=== PATIENT | female | born 1995 | race African-American/Black ===

== ENCOUNTER 2016-09-15 07:14 | Emergency (ER) | payer OTHER ==
[~2016-09-15] VITALS: Ht 175.3 cm; Wt 90.0 kg
[~2016-09-15 07:14] MED LIST: ETON1IMP I-DERMAL
[2016-09-15 07:16] VITALS: BP 129/66; PULSE 120; RESP 16; TEMP 97.7; O2SAT 100
[2016-09-15 07:25] VITALS: PULSE 105; RESP 20; O2SAT 100
[2016-09-15] MEDS ORDERED: IBUP800T23 PO (07:47)
[2016-09-15] MEDS ORDERED: AMOX875T PO (07:47)
--- NOTE | 2016-09-15 07:47 | PD ---
HPI Chief Complaint: ENT Complaint Time Seen by Provider: 07:30 Travel History International Travel<30 days: No Contact w/Intl Traveler<30days: No Traveled to known affect area: No History of Present Illness HPI Patient is a 20-year-old female who presents emergency for evaluation of right tonsillar hypertrophy, sore throat. She states her symptoms started 2 days ago. She has been taking acetaminophen sporadically. She has not taken any in 2 days. She denies any fever, chills, nausea, vomiting, abdominal pain, chest pain or shortness of breath. She further denies any nasal congestion or postnasal drip. PFSH Past Medical History Asthma: Yes Developmental Delay: No Diminished Hearing: No Immunizations Current: Yes ?: Not : 2 Para: 0 : 1 Social History Alcohol Use: No Tobacco Use: No Substance Use: No Allergies-Medications (Allergen,Severity, Reaction): Coded Allergies: No Known Allergies (Verified , 09/15/16) Reported Meds & Prescriptions Reported Meds & Active Scripts Active Reported Nexplanon Implant (Etonogestrel Implant) 68 Mg Imp 68 Mg I-DERMAL ONCE Review of Systems Except as stated in HPI: all other systems reviewed are Neg General / Constitutional: No: Fever, Chills HENT: Positive: Sore Throat, No: Congestion, Neck Stiffness, Neck Pain Cardiovascular: No: Chest Pain or Discomfort Respiratory: No: Shortness of Breath Gastrointestinal: No: Abdominal Pain Musculoskeletal: No: Myalgias Physical Exam Narrative GENERAL: Well-nourished, well-developed patient. SKIN: Warm and dry. HEAD: Normocephalic. EYES: No scleral icterus. No injection or drainage. THROAT: Mild pharyngeal injection, exudates noted on the right tonsil, 1+ tonsillar hypertrophy on the right. Airway is patent. NECK: Supple, trachea midline. No JVD or lymphadenopathy. CARDIOVASCULAR: Regular rate and rhythm without murmurs, gallops, or rubs. RESPIRATORY: Breath sounds equal bilaterally. No accessory muscle use. GASTROINTESTINAL: Abdomen soft, non-tender, nondistended. MUSCULOSKELETAL: No cyanosis, or edema. BACK: Nontender without obvious deformity. No CVA tenderness. Data Data Last Documented VS Vital Signs Date Time Temp Pulse Resp B/P Pulse Ox O2 Delivery O2 Flow Rate FiO2 09/15/16 07:25 105 20 100 Room Air 09/15/16 07:16 97.7 129/66 [facility] Medical Decision Making Medical Screen Exam Complete: Yes Emergency Medical Condition: Yes Interpretation(s) Vital Signs Date Time Temp Pulse Resp B/P Pulse Ox O2 Delivery O2 Flow Rate FiO2 09/15/16 07:25 105 20 100 Room Air 09/15/16 07:16 97.7 120 16 129/66 100 Room Air Differential Diagnosis Viral syndrome versus pharyngitis versus allergic rhinitis versus other Narrative Course Patient is a 20-year-old female who presented to emergency for evaluation of right tonsillar hypertrophy that is ongoing for approximately 2 days. Patient is afebrile, she has not taken any acetaminophen or ibuprofen as 2 days. Right tonsil is enlarged with exudates noted. Patient's airways patent. She'll be provided with a prescription for antibiotics at this time, she is encouraged to continue saltwater gargles. She is encouraged follow-up with her primary doctor or return to emergency department for any new or worsening symptoms. Patient verbalizes understanding of these instructions. Patient is stable for discharge. Diagnosis Primary Impression: Tonsillitis with exudate Referrals: Primary Care Physician Patient Instructions: General Instructions, Tonsillitis (ED) Additional Instructions: Follow-up with her primary doctor Take medications as directed Salt water gargles as needed Return to emergency department for any new or worsening symptoms Med/Other Pt SpecificInfo: Prescription(s) given Scripts Ibuprofen 800 Mg Gba104 Mg PO Q6HR PRN (PAIN) #40 TAB Ref 0 Prov:Raven Connors 09/15/16 Amoxicillin 875 Mg [id number] Mg PO BID 10 Days Ref 0 Prov:Raven Connors 09/15/16 Disposition: 01 DISCHARGE HOME Condition: Stable Raven Connors Sep 15, 2016 07:47
== END 2016-09-15 07:56 | disposition home or self-care (01) ==
LOC: NEPB 07:14
DX: J03.90 Acute tonsillitis, unspecified (principal); J45.909 Unspecified asthma, uncomplicated
CPT/HCPCS: 99282

== ENCOUNTER 2016-09-16 16:56 | Emergency (ER) | payer OTHER ==
[~2016-09-16] VITALS: Ht 175.3 cm; Wt 90.0 kg
[~2016-09-16 16:56] MED LIST changes: +AMOX875T PO; +IBUP800T23 PO
[2016-09-16 16:57] VITALS: BP 125/70; PULSE 82; RESP 12; TEMP 98; O2SAT 100
[2016-09-17] MEDS ORDERED: IBUP800T23 PO (01:17)
[2016-09-17] MEDS ORDERED: AMOX875T PO (01:17)
== END 2016-09-16 19:30 | disposition left against medical advice (07) ==
LOC: NED 16:56
DX: J02.9 Acute pharyngitis, unspecified (principal)
CPT/HCPCS: 99281

== ENCOUNTER 2016-09-17 00:59 | Emergency (ER) | payer OTHER ==
[~2016-09-17] VITALS: Ht 175.3 cm; Wt 90.0 kg
[2016-09-17 01:03] VITALS: BP 137/64; PULSE 88; RESP 18; TEMP 97.8; O2SAT 100
[2016-09-17] MEDS ORDERED: AMOX875T PO (01:17)
[2016-09-17] MEDS ORDERED: IBUP800T23 PO (01:17)
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
[2016-09-17] MEDS ORDERED: DEXAMETHASONE SOD PHOS 4 MG/ML VIAL IM ONE (01:30)
[2016-09-17] MEDS ORDERED: ACETAMINOPHEN 325 MG TAB PO ONE (01:30)
[2016-09-17 02:21] VITALS: RESP 20
== END 2016-09-17 02:34 | disposition home or self-care (01) ==
LOC: NEPB 00:59
DX: J03.80 Acute tonsillitis due to other specified organisms (principal); B95.0 Streptococcus, group A, as the cause of diseases classified elsewhere; J45.909 Unspecified asthma, uncomplicated
CPT/HCPCS: 86308; 87880; 96372; 99283; J1100

== ENCOUNTER 2017-01-19 16:53 | Emergency (ER) | payer OTHER ==
[~2017-01-19] VITALS: Ht 175.3 cm; Wt 97.0 kg
[2017-01-19 16:55] VITALS: BP 149/73; PULSE 86; RESP 20; TEMP 98.8; O2SAT 99
--- NOTE | 2017-01-19 17:37 | PD ---
Physical Exam Time Seen by Provider: 17:35 Narrative 21yo F c/o swollen tonsils x 1 week. Denies sore throat. Denies fever, vomiting, abd pain. Just wants to get checked. Patient seen in triage. VS reviewed. Awaiting bed placement. Data Data Last Documented VS Vital Signs Date Time Temp Pulse Resp B/P Pulse Ox O2 Delivery O2 Flow Rate FiO2 01/19/17 16:55 98.8 86 20 149/73 99 Room Air MDM Supervised Visit with ROHAN: Renu Padgett January 19, 2017 17:37
--- NOTE | 2017-01-19 18:04 | PD ---
HPI Chief Complaint: ENT Complaint Time Seen by Provider: 17:59 Travel History International Travel<30 days: No Contact w/Intl Traveler<30days: No Traveled to known affect area: No History of Present Illness HPI Patient is a 21-year-old female presenting to emergency department to have her throat "checked out". Patient states a week ago but those started feeling irritated when she had a head cold. She looked in the mirror to see her tonsils and felt as if they were enlarged and she presented to be evaluated. She denies any pain, dysphagia, fevers. PFSH Past Medical History Asthma: Yes Developmental Delay: No Diminished Hearing: No Immunizations Current: Yes ?: Not LMP: NEXPLANON : 2 Para: 0 : 1 Social History Alcohol Use: No Tobacco Use: No Substance Use: No Allergies-Medications (Allergen,Severity, Reaction): Coded Allergies: No Known Allergies (Verified , 01/19/17) Reported Meds & Prescriptions Reported Meds & Active Scripts Active Reported Nexplanon Implant (Etonogestrel Implant) 68 Mg Imp 68 Mg I-DERMAL ONCE Review of Systems Except as stated in HPI: all other systems reviewed are Neg Physical Exam Narrative GENERAL: Well-nourished, well-developed patient. SKIN: Focused skin assessment warm/dry. HEAD: Normocephalic. EYES: No scleral icterus. No injection or drainage. THROAT: No pharyngeal injection, exudates, mild tonsillar hypertrophy bilaterally. Airway is patent. Cobblestone appearance to posterior pharynx NECK: Supple, trachea midline. No JVD or lymphadenopathy. CARDIOVASCULAR: Regular rate and rhythm without murmurs, gallops, or rubs. RESPIRATORY: Breath sounds equal bilaterally. No accessory muscle use. GASTROINTESTINAL: Abdomen soft, non-tender, nondistended. MUSCULOSKELETAL: No cyanosis, or edema. BACK: Nontender without obvious deformity. No CVA tenderness. Data Data Last Documented VS Vital Signs Date Time Temp Pulse Resp B/P Pulse Ox O2 Delivery O2 Flow Rate FiO2 01/19/17 16:55 98.8 86 20 149/73 99 Room Air MDM Medical Decision Making Medical Screen Exam Complete: Yes Emergency Medical Condition: No Interpretation(s) Vital Signs Date Time Temp Pulse Resp B/P Pulse Ox O2 Delivery O2 Flow Rate FiO2 01/19/17 16:55 98.8 86 20 149/73 99 Room Air Differential Diagnosis Pharyngitis versus allergic rhinitis versus upper respiratory infection versus other Narrative Course Patient is a 21-year-old female presenting for evaluation of abnormal-looking tonsils. She does report some throat irritation over the last week but no pain , dysphasia, fevers. Physical examination is unremarkable. Her tonsils are enlarged but they are not infected appearing, erythematous, or have exudates noted. Patient has a primary doctor. She was encouraged to follow-up with her doctor if she had any new or worsening throat pain. She was encouraged to return to the emergency department immediately for any new or worsening symptoms or actual symptoms. A medical screening exam was performed: At the time of evaluation the presenting medical condition was determined not to be of an emergent nature. The patient was given the option of receiving additional care, but declined. Patient was given options for additional community resources from which to obtain care. The Patient Has Been advised to seek medical attention for their presenting complaint. The patient has been advised to return to the ER at any time if an emergent condition develops. Diagnosis Primary Impression: Encounter for medical screening examination Condition: Raven Oropeza January 19, 2017 18:04
== END 2017-01-19 18:08 | disposition left against medical advice (07) ==
LOC: NEPK 16:53
DX: J00 Acute nasopharyngitis [common cold] (principal)
CPT/HCPCS: 99281

== ENCOUNTER 2017-08-25 13:34 | Emergency (ER) | payer OTHER ==
[~2017-08-25 13:34] MED LIST changes: +ACYC800T PO; -AMOX875T PO; -IBUP800T23 PO
[2017-08-25 13:35] VITALS: BP 141/74; PULSE 92; RESP 20; TEMP 98.6; O2SAT 100
--- NOTE | 2017-08-25 14:25 | PD ---
HPI Chief Complaint: Cold / Flu Symptoms Time Seen by Provider: 13:57 Travel History International Travel<30 days: No Contact w/Intl Traveler<30days: No Traveled to known affect area: No History of Present Illness HPI 21-year-old female presents to the emergency room for evaluation of sore throat and body aches for the past 2 days. States the first but she wishes getting a cold because her kids are sick with a sore throat persisted and worsened. Pain is constant but worse when she swallows. She took Tylenol and cough drops without significant relief in symptoms. Denies cough, congestion, fever, chills , nausea, and vomiting. No chronic medical conditions or daily medications. PFSH Past Medical History Asthma: Yes Developmental Delay: No Diminished Hearing: No Immunizations Current: Yes ?: Not : 2 Para: 0 : 1 Social History Alcohol Use: No Tobacco Use: No Substance Use: No Allergies-Medications (Allergen,Severity, Reaction): Coded Allergies: No Known Allergies (Verified Adverse Reaction, Unknown, 08/25/17) Reported Meds & Prescriptions Reported Meds & Active Scripts Active Acyclovir 800 Mg Tab 800 Mg PO BID Reported Nexplanon Implant (Etonogestrel Implant) 68 Mg Imp 68 Mg I-DERMAL ONCE Review of Systems Except as stated in HPI: all other systems reviewed are Neg Physical Exam Narrative GENERAL: Well-nourished, well-developed female in no acute distress. Afebrile. Ambulatory. SKIN: Focused skin assessment warm/dry. HEAD: Normocephalic. EYES: No scleral icterus. No injection or drainage. NECK: Supple, trachea midline. No JVD or lymphadenopathy. EARS: Bilateral pinnae and external canals appear within normal limits. Bilateral tympanic membranes without erythema, dullness or perforation THROAT: Mucosa pink and moist. Moderate erythema with bilateral exudates. Tonsils 2+ and equal. No uvular edema. No uvular, palatal, or tonsillar deviation. Airway patent. CARDIOVASCULAR: Regular rate and rhythm without murmurs, gallops, or rubs. RESPIRATORY: Breath sounds equal bilaterally. No accessory muscle use. No crackles, rales, wheezes, or rhonchi. Data Data Last Documented VS Vital Signs Date Time Temp Pulse Resp B/P (MAP) Pulse Ox O2 Delivery O2 Flow Rate FiO2 08/25/17 13:35 98.6 92 20 141/74 (96) 100 Room Air Orders Orders Group A Rapid Strep Screen (08/25/17 13:57) MDM Medical Decision Making Medical Screen Exam Complete: Yes Emergency Medical Condition: Yes Medical Record Reviewed: Yes Differential Diagnosis Streptococcal pharyngitis, tonsillitis, gonococcal pharyngitis, flu Narrative Course 21-year-old female presents to the emergency room for evaluation of sore throat , body aches for the past 2 days. Has history of strep throat and states this feels the same. Patient is afebrile and well-appearing in the emergency room. There is moderate erythematous pharynx with bilateral edema and exudates. Rapid strep is positive. Patient discharged with amoxicillin and told to follow up with PCP or return for worsening symptoms. She understands and agrees to plan. Diagnosis Primary Impression: Streptococcal pharyngitis Referrals: Primary Care Physician Additional Instructions: Rest and drink plenty of fluids. Take amoxicillin as directed, until gone. Take ibuprofen with food as directed, as needed for pain. Follow-up with a primary care physician. Return to the emergency room for worsening symptoms. Med/Other Pt SpecificInfo: Prescription(s) given Scripts Amoxicillin (Amoxicillin) 500 Mg Tab 500 MG PO BID for Infection for 10 Days, #20 TAB 0 Refills Prov: Kathi Moran MD 08/25/17 Disposition: 01 DISCHARGE HOME Condition: Stable Anjelica Sosa Aug 25, 2017 14:25
[2017-08-25] MEDS ORDERED: AMOX500T PO (14:27)
== END 2017-08-25 14:55 | disposition home or self-care (01) ==
LOC: NEPK 13:34
DX: J02.0 Streptococcal pharyngitis (principal); J45.909 Unspecified asthma, uncomplicated
CPT/HCPCS: 87880; 99283

== ENCOUNTER 2017-12-20 16:50 | Emergency (ER) | payer MEDICAID, OTHER ==
[~2017-12-20] VITALS: Ht 175.3 cm; Wt 100.0 kg
[~2017-12-20 16:50] MED LIST changes: +AMOX500T PO
[2017-12-20 16:54] VITALS: BP 139/65; PULSE 95; RESP 19; TEMP 97.9; O2SAT 100
--- NOTE | 2017-12-20 18:04 | PD ---
HPI Chief Complaint: Edema Time Seen by Provider: 17:33 Travel History International Travel<30 days: No Contact w/Intl Traveler<30days: No Traveled to known affect area: No History of Present Illness HPI 22yo F with no PMH presents to the ED with multiple complaints. Pt said she has intermittent left arm pain that is more soreness and worst with movement. Said she has bilateral feet swelling intermittent for 2 weeks as well. Swelling improves with elevation. Said she has been having dark urine since she does not drink much water. Also has pain all over but did not take medication. Denies any fever, trauma, chest pain, sob, n/v, abdominal pain, dysuria, hematuria, vaginal bleeding or discharge, focal weakness or numbness, history of PE/DVT, recent traveling or surgery. PFSH Past Medical History Asthma: Yes Developmental Delay: No Diminished Hearing: No Immunizations Current: Yes ?: Not LMP: NEXPLANON : 2 Para: 0 : 1 Social History Alcohol Use: No Tobacco Use: No Substance Use: No Allergies-Medications (Allergen,Severity, Reaction): Coded Allergies: No Known Allergies (Verified Adverse Reaction, Unknown, 12/20/17) Reported Meds & Prescriptions Reported Meds & Active Scripts Active Amoxicillin 500 Mg Tab 500 Mg PO BID 10 Days Acyclovir 800 Mg Tab 800 Mg PO BID Reported Nexplanon Implant (Etonogestrel Implant) 68 Mg Imp 68 Mg I-DERMAL ONCE Review of Systems Except as stated in HPI: all other systems reviewed are Neg Physical Exam Narrative GENERAL: 22yo F not in distress. SKIN: Focused skin assessment warm/dry. HEAD: Atraumatic. Normocephalic. EYES: Pupils equal and round. No scleral icterus. No injection or drainage. ENT: No nasal bleeding or discharge. Mucous membranes pink and moist. NECK: Trachea midline. No JVD. CARDIOVASCULAR: Regular rate and rhythm. No murmur appreciated. RESPIRATORY: No accessory muscle use. Clear to auscultation. Breath sounds equal bilaterally. GASTROINTESTINAL: Abdomen soft, non-tender, nondistended. MUSCULOSKELETAL: LUE: Mild ttp mid humerus. No erythema, edema, open wound. FROM in left shoulder, left elbow, wrist. Distal pulses intact. Sensation intact. Soft compartments. Bilateral lower extremities: Do not see edema. Distal pulses 2+. Sensation intact. NEUROLOGICAL: Awake and alert. No obvious cranial nerve deficits. Motor grossly within normal limits in all extremities. Normal speech. PSYCHIATRIC: Appropriate mood and affect; insight and judgment normal. Data Data Last Documented VS Vital Signs Date Time Temp Pulse Resp B/P (MAP) Pulse Ox O2 Delivery O2 Flow Rate FiO2 12/20/17 19:16 16 12/20/17 16:54 97.9 95 139/65 (89) 100 Orders Orders Ed Urine Pregnancytest Poc (12/20/17 17:45) Thyroid Stimulating Hormone (12/20/17 17:45) Comprehensive Metabolic Panel (12/20/17 17:45) Urinalysis - C+S If Indicated (12/20/17 17:45) Ketorolac Inj (Toradol Inj) (12/20/17 18:15) Labs Laboratory Tests Test 12/20/17 17:55 Urine Color LIGHT-YELLOW Urine Turbidity HAZY Urine pH 8.0 Urine Specific [place] 1.022 Urine Protein TRACE mg/dL Urine Glucose (UA) NEG mg/dL Urine Ketones NEG mg/dL Urine Occult Blood NEG Urine Nitrite NEG Urine Bilirubin NEG Urine Urobilinogen 2.0 MG/DL Urine Leukocyte Esterase NEG Urine RBC 1 /hpf Urine WBC 2 /hpf Urine Squamous Epithelial Cells 31 /hpf Urine Bacteria RARE /hpf Urine Mucus FEW /lpf Microscopic Urinalysis Comment CULT NOT INDICATED Blood Urea Nitrogen 10 MG/DL Creatinine 0.78 MG/DL Random Glucose 91 MG/DL Total Protein 8.3 GM/DL Albumin 4.0 GM/DL Calcium Level 9.0 MG/DL Alkaline Phosphatase 71 U/L Aspartate Amino Transf (AST/SGOT) 16 U/L Alanine Aminotransferase (ALT/SGPT) 19 U/L Total Bilirubin 0.2 MG/DL Sodium Level 142 MEQ/L Potassium Level 3.7 MEQ/L Chloride Level 107 MEQ/L Carbon Dioxide Level 27.3 MEQ/L Anion Gap 8 MEQ/L Estimat Glomerular Filtration Rate 112 ML/MIN Thyroid Stimulating Hormone 3rd Gen 0.568 uIU/ML [facility] Medical Decision Making Medical Screen Exam Complete: Yes Emergency Medical Condition: Yes Differential Diagnosis Hypothyroidism vs. anxiety vs. electrolyte abnormality vs. dehydration vs. UTI Narrative Course 22yo F with multiple vague complaints. Left arm pain seems very musculoskeletal. Pt has no trauma, signs of infection or restrictions of motion so do not feel imaging is needed. Will check electrolytes, urinalysis and thyroid function. UA showed WBC 2. Culture not indicated. CMP reviewed and showed normal LFTs as well as normal creatinine. TSH normal. Urine negative. Pt given toradol. Pt reevaluated at bedside and pain has improved. Instructed pt to follow up with her primary care physician. Return precautions given. Diagnosis Primary Impression: Encounter for medical screening examination Patient Instructions: General Instructions Departure Forms: Tests/Procedures Additional Instructions: Please follow up with your primary care physician in 2-3 days. Return to the ED if symptoms worsen. Med/Other Pt SpecificInfo: Prescription(s) given Scripts Acetaminophen (Tylenol) 325 Mg Tab 650 MG PO Q6H Y for PAIN SCALE 1 TO 4, #20 TAB 0 Refills Prov: Sheri Ryan DO 12/20/17 Disposition: 01 DISCHARGE HOME Condition: Stable Sheri Ryan DO December 20, 2017 18:04
[2017-12-20] MEDS ORDERED: KETOROLAC TROMETHAMINE 30 MG/ML (IVP) VIAL IV PUSH ONE (18:15)
[2017-12-20 18:25] LABS: BACTERIA, URINE RARE /hpf; BILIRUBIN, URINE NEG (NEG); BLOOD, URINE NEG (NEG); GLUCOSE,URINE NEG (NEG); KETONE, URINE NEG (NEG); MUCUS URINE FEW /lpf (OCC); NITRITE,URINE NEG (NEG); SQUAMOUS EPITHELIAL CELL URINE 31 /hpf (0-5); URINE COLOR LIGHT-YELLOW (YELLW/STRAW); URINE LEUKOCYTE ESTERASE NEG (NEG)
[2017-12-20 18:33] LABS: ALT (GPT) 19 U/L (10-53)
[2017-12-20 18:42] LABS: ALKALINE PHOSPHATASE 71 U/L (45-117); TOTAL BILIRUBIN ADULT 0.2 MG/DL (0.2-1.0); TOTAL PROTEIN 8.3 GM/DL (6.4-8.2)
[2017-12-20 18:44] LABS: AST (GOT) 16 U/L (15-37); BICARBONATE 27.3 MEQ/L (21.0-32.0); BLOOD UREA NITROGEN 10 MG/DL (7-18); CHLORIDE 107 MEQ/L (98-107); CREATININE 0.78 MG/DL (0.50-1.00); GLOMERULAR FILTRATION RATE 112 ML/MIN (>89); GLUCOSE,RANDOM 91 MG/DL (74-106); SODIUM (NA) 142 MEQ/L (136-145)
[2017-12-20 19:16] VITALS: RESP 16
[2017-12-20] MEDS ORDERED: TYLE325T PO (19:25)
== END 2017-12-20 19:36 | disposition home or self-care (01) ==
LOC: NEPD 16:50
DX: M79.602 Pain in left arm (principal); M79.89 Other specified soft tissue disorders
CPT/HCPCS: 80053; 81001; 84443; 84703; 96374; 99284; J1885